=== PATIENT | female | born 2000 | race Caucasian/White ===

== ENCOUNTER 2024-12-30 11:10 | Outpatient (AMB) | payer SELFPAY ==
--- OUTSIDE RECORDS SUMMARY | 2024-12-30 12:52 | XMS_ITS | Encounter Summary ---
Author Organization [facility] Address [address] [place] [address] Phone Care Team Providers Care Power Plant Inspector Name Role Phone Chon Rodgers MD Primary Care Provider Pcp, Unknown Primary Care Provider Unavailabl e Encounter Details Date Type Department Care Team (Latest Contact Info) Description 03/09/2017 Transcribe Orders [facility] [address] [place] [address] Rodolfo Cerna MD 193 [facility] 2 [place] [address] [email or web address] Dysuria (Primary Dx) Social History Tobacco Use Types Packs/Day Years Used Date Smoking Tobacco: Never Assessed Comments Unknown Sex and Gender Information Value Date Recorded Sex Assigned at Female 05/22/2021 8:08 PM EST Legal Sex Female 8:47 PM EDT Gender Identity Female 05/22/2021 8:08 PM EST Sexual Orientation Straight 05/22/2021 8: 08 PM EST documented as of this encounter Plan of Treatment Not on file documented as of this encounter Procedures Procedure Name Priority Date/Time Associated Diagnosis Comments URINE CULTURE Routine 03/08/2017 3:34 PM EDT Dysuria documented in this encounter Results * (ABNORMAL) Urine culture (03/08/2017 3:34 PM EDT) Specimen Source/ Description URINE URINE [facility] Special Requests None [facility] GRAM STAIN Few GRAM NEGATIVE RODS [facility] Culture/Test 10,000 to 100,000 colony forming units per ml ESCHERICHIA COLI(A) [facility] Report Status 03/11/2017 FINAL [facility] ORGANISM ESCHERICHIA COLI [facility] Urine (Urine) 03/08/2017 3:3 4 PM EDT 03/09/2017 7:39 PM EDT Narrative Organism Antibiotic Method Susceptibility Escherichia coli Ampicillin [facility] METHOD <=2: Susceptible Escherichia coli Amoxicillin-clavulanate [facility] METHO D <=2: Susceptible Escherichia coli Ampicillin-sulbactam [facility] METHOD <=2: Susceptible Escherichia coli Cefazolin [facility] METHOD <=4: Susceptible Escherichia coli Cefepime [facility] METHOD <=1: Susceptible Escherichia coli Ceftazidime [facility] METHOD <=1: Susceptible Escherichia coli Ceftriaxone [facility] METHOD <=1: Susceptible Escherichia coli Ciprofloxacin [facility] METHOD <=0.25: Susceptible Escherichia coli Extended Spectrum B-lactamase [facility] METHOD Negative Escherichia coli Gentamicin [facility] METHOD <=1: Susceptible Escherichia coli Levofloxacin [facility] METHOD <=0.12: Susceptible Escherichia coli Nitrofurantoin [facility] METHOD <=16: Susceptible Escherichia coli Piperacillin-tazobactam [facility] METHO D <=4: Susceptible Escherichia coli Trimethoprim/sulfame thoxa zole [facility] METHOD <=20: Susceptible Comment:10,000 to 100,000 co lony forming units per ml ESCHERICHIA COLI Rodolfo Cerna MD MICROBIOLOGY - GENERAL ORDERABL ES Edited Result - Final [facility] [address] [place] [address] documented in this encounter Visit Diagnoses Diagnosis Dysuria- Primary documented in this encounter Additional Health Concerns Infection Onset Date Last Indicated Resolved Time CoV-Risk 07/18/2022 07/18/2022 07/29/2022 1:23 AM EDT CoV-Risk 08/01/2023 08/01/2023 08/12/2023 1:22 AM EDT documented as of this encounter Care Teams Power Plant Inspector Relationship Specialty Start Date End Date Chon Rodgers MD 193 [facility], [address] [place] [address] PCP - General Pediatrics 08/21/17 01/04/21 Pcp, Unknown PCP - General 01/05/21 documented as of this encounter Additional Source Comments The information contained in this document represents components of the legal health record. It is not the complete legal health record.[facility]
--- OUTSIDE RECORDS SUMMARY | 2024-12-30 12:52 | XMS_ITS | Encounter Summary ---
Author Organization [facility] Address [address] [place] [address] Phone Care Team Providers Care Gettering Filament Machine Operator Name Role Phone Smiley Baeza MD Primary Care Provider [phone] Encounter Details Date Type Department Care Team (Late st Contact Info) Description 12/18/2016 Conversion Encounter [facility] - [address], [address] [place] [address] Smiley Baeza MD [address] [place] [address] Social History Tobacco Use Types Packs/Day Years Used Date Smoking Tobacco: Never Assessed Comments Unknown Sex and Gender Information Value Date Recorded Sex Assigned at Not on file Legal Sex Female 6:31 PM EDT Gender Identity Not on file Sexual Orientation Not on file documented as of this encounter Plan of Treatment Not on file documented as of this encounter Visit Diagnoses Not on filedocumented in this encounter Care Teams Gettering Filament Machine Operator Relationship Specialty Start Date End Date Smiley Baeza MD 193 [place] [address] PCP - General Pediatrics 03/19/17 12/27/22 documented as of this encounter
== END 2024-12-30 14:10 | disposition home or self-care (01) ==
PROVIDERS: Visit Provider Registered Nurse Emergency
DX: J30.89 Other allergic rhinitis (principal)
CPT/HCPCS: 95117; 95165

== ENCOUNTER 2025-01-12 10:06 | Outpatient (AMB) | payer OTHER, SELFPAY ==
--- OUTSIDE RECORDS SUMMARY | 2025-01-12 11:36 | XMS_ITS | Clinical Summary ---
Author Organization [facility] Address [address] [place] [address] Phone Care Team Providers Care Media Planner Name Role Phone Pcp, Unknown Primary Care Provider Unavailabl e Allergies No known active allergies Medications levonorgestrel- ethinyl estradiol (AVIANE,ALESSE, LESSINA) 0.1-0.02 mg per tablet Aviane 0.1 mg-20 mcg tablet Active albuterol 90 mcg/actuation inhaler Inhale 108 mcg into the lungs. Active methylPREDNISol one (MEDROL DOSEPACK) 4 mg tablet follow package directions 21 tablet 4 Active Active Problems Problem Noted Date Diagnosed Date Dysmenorrhea 10/10/2016 Overview (08/01/2023): Last Assessment & Plan: On aviane, still with some cramping/lower back pain, but this is manageable and she's not interested in changing pills or methods at this time. Seasonal allergic rhinitis 06/24/2016 Overview (08/01/2023): Last Assessment & Plan: Continues to use claritin D and flonase, but now getting allergy shots through Dr. Archibald. Immunizations Immunization Administration Dates Next Due COVID-19 (Pre-03/03) Moderna Vaccine, mRNA, PF 10/10/2020,09/11/2020 DTaP 05/17/2003, 0,1999,05/28,1999 HPV,quadrivalent 04/21/2014,11/09/2013, 4 Hepatitis B 1999,1999,1999 Hib,PRP-T 01/29/2000, 0,1999,03/29 IPV 05/17/2003, 0,1999,03/29 Influenza, Unspecified Formulation 04/21/2014,,05/20/2012 MMR 05/17/2003,04/28/2000 Meningococcal MCV4P 10/10/2016,05/10/2011 Pneumococcal conjugate, PCV 7 04/28/2000, 000 Tdap 01/30/2010 Varicella 05/10/2011,01/29/2000 Social History Tobacco Use Types Packs/Day Years Used Date Smoking Tobacco: Light Smoker Smokeless Tobacco: Never Comments:Vaping / e-cig Alcohol Use Standard Drinks/Week Comments Never 0 (1 standard drink = 0.6 oz pur e alcohol) Education Answer Date Recorded Are you interested in more education? Not on penny e 09/06/2022 Are you concerned about learning? Not on file 09/06/2022 No 09/06/2022 No 09/06/2022 Digital Access Answer Date Recorded No 10/04/2022 No 10/04/2022 Reliable internet access at home? Not on file 10/04/2022 Device with a working camera? Not on file Comments No Sex and Gender Information Value Date Recorded Sex Assigned at Female 05/22/2021 8:08 PM EST Legal Sex Female 8:47 PM EDT Gender Identity Female 05/22/2021 8:08 PM EST Sexual Orientation Straight 05/22/2021 8: 08 PM EST Last Filed Vital Signs Vital Sign Reading Time Taken Comments Blood Pressure 105/71 08/01/2023 5:47 PM EDT Pulse 84 08/01/2023 5:47 PM EDT Temperature 36.7 C (98 F) 08/01/2023 5:47 PM EDT Respiratory Rate 12 08/01/2023 5:47 PM EDT Oxygen Saturation 99% 08/01/2023 5:47 PM EDT Inhaled Oxygen Concentration - - Weight 56.7 kg (125 lb) 12/30/2022 10:26 AM EDT Height 154.9 cm (5' 1 ) 07/18/2022 4:10 PM EST Body Mass Index 23.62 07/18/2022 4:10 PM EST Plan of Treatment Health Maintenance Due Date Last Done Comments DEPRESSION SCREENING 2011 SMOKING Hx and SMOKELESS TOBACCO SCREENING 01/28/2012 HEPATITIS C SCREENING 2017 HIV ONE-TIME SCREENING (18-65 YEARS) 2017 PNEUMOCOCCAL VACCINES (0-49 years) (1 of 2 - PCV) 2018 04/28/2000, 01/29/2000 PAP SMEAR 01/28/2020 Adult Td,Tdap Booster 01/31/2020 01/30/2010 INFLUENZA VACCINE (#1) 2024 4, 06/30/2013, 05/20/2012 COVID-19 VACCINE ( season) 2025 10/10/2020, 09/11/2020 HIB VACCINES Completed 01/29/2000, 07/11, 1999, Additional history exists HPV VACCINES Completed 04/21/2014, 05/2013, 06/30/2013 MENINGOCOCCAL VACCINES (ACWY) Completed 10/10/2016, 05/10/2011 HEPATITIS A VACCINES Aged Out No long er eligible based on patient's age to complete this topic MENINGOCOCCAL VACCINES (B) Aged Out N o longer eligible based on patient's age to complete this topic Medical Devices Not on file Insurance [facility] OUT [facility] PPO BLUE CROSS OUT OF STATE PPO BLUE CROSS OUT OF [facility] PPO BLUE CROSS OUT OF STATE PPO BLUE CROSS OUT OF STATE PPO [facility] OUT OF STATE PPO [facility] OUT [facility] PPO [facility] OUT [facility] PPO [facility] PPO Care Teams Media Planner Relationship Specialty Start Date End Date Pcp, Unknown PCP - General 01/05/21 Additional Source Comments The information contained in this document represents components of the legal health record. It is not the complete legal health record.[facility]
--- OUTSIDE RECORDS SUMMARY | 2025-01-12 11:36 | XMS_ITS | Encounter Summary ---
Author Organization [facility] Address [address] [place] [address] Phone Care Team Providers Care Gluing Pressman Name Role Phone Smiley Baeza MD Primary Care Provider [phone] Encounter Details Date Type Department Care Team (Late st Contact Info) Description 12/18/2016 Conversion Encounter [facility]s - [address], [address] [place] [address] Smiley Baeza MD [address] [place] [address] Social History Tobacco Use Types Packs/Day Years [...] on filedocumented in this encounter Care Teams Gluing Pressman Relationship Specialty Start Date End Date Smiley Baeza MD 193 [place] [address] PCP - General Pediatrics 03/19/17 12/27/22 documented as of this encounter
--- OUTSIDE RECORDS SUMMARY | 2025-01-12 11:36 | XMS_ITS | Encounter Summary ---
Author Organization [facility] Address [address] [place] [address] Phone Care Team Providers Care Production Support Manager Name Role Phone Smiley Baeza MD Primary Care Provider [phone] Reason for Visit * Reason Comments Med Refill Encounter Details Date Type Department Care Team (Late st Contact Info) Description 01/11/2022 Refill [facility] - [place] [address] [place] [address] Smiley Baeza MD 193 [place] [address] Dysmenorrhea Social History Tobacco Use Types Packs/Day Years Used Date Smoking Tobacco: Never Smokeless Tobacco: Never Comments:no vaping Alcohol Use Standard Drinks/Week Comments Not Currently 0 (1 standard drink = 0.6 oz pur e alcohol) Hunger/Food Answer Date Recorded In the last 12 months, did y ou or your family ever eat less than you felt you should because there wasn't enough money for food? No 07/09/2018 Stable Housing Answer Date Recorded Are you worried that in the next 2 months you may not have stable housing? No 07/09/2018 Transportation Concerns Answer Date Rec orded In the last 12 months, have you or your family ever had to go without healthcare because you didn't have a way to get there? No 07/09/2018 Hazards in Home Answer Date Recorded Think about the place you li ve. Do you have problems with any of the following? Pests (mice or roaches), mold, no/not working smoke detectors, water leaks, no window guards. No 2018 Financing Utilities Answer Date Recorde d In the last 12 months, has t he electric, gas, oil, or water company threatened to shut off your services in your home? No 07/09/2018 Safety at Home Answer Date Recorded Are you or your family worried about feeling saf e in your home? No 07/09/2018 Outside Support Answer Date Recorded Do you feel that you need mo re support from other people or programs to help you care for yourself or your family? No 07/09/2018 Understanding Health Concerns Answer Da te Recorded Do you need help understandi ng your or your child's healthcare needs (diagnosis, medications, plan, etc.)? No 07/09/2018 Financing Health Concerns Answer Date R ecorded In the last 12 months, was t here a time when your child needed to see a doctor or get medications or supplies but could not because of cost? No 07/09/2018 Missing School or Work Answer Date Shamar rded Did you or your child miss s chool or work because of a health problem that could have been avoided? No 07/09/2018 Comments No Sex and Gender Information Value Date Recorded Sex Assigned at Not on file Legal Sex Female 6:31 PM EDT Gender Identity Not on file Sexual Orientation Not on file documented as of this encounter Plan of Treatment Not on file documented as of this encounter Visit Diagnoses Diagnosis Dysmenorrhea documented in this encounter Care Teams Production Support Manager Relationship Specialty Start Date End Date Smiley Baeza MD [address] [place] [address] PCP - General Pediatrics 03/19/17 12/27/22 documented as of this encounter
--- OUTSIDE RECORDS SUMMARY | 2025-01-12 11:36 | XMS_ITS | Encounter Summary ---
Author Organization [facility] Address [address] [place] [address] Phone Care Team Providers Care Gold Assayer Name Role Phone Smiley Baeza MD Primary Care Provider [phone] Reason for Visit * Reason Comments Med Refill Encounter Details Date Type Department Care Team (Late st Contact Info) Description 07/22/2021 Refill [facility] - [place] [address] [place] [address] Cohn Rodgers MD 193 [place] [address] Dysmenorrhea Social History Tobacco Use Types Packs/Day [...] on file documented as of this encounter Miscellaneous Notes * Telephone Encounter - Palma Barrera - 07/23/2021 11:25 AM EDT Called pt and she was unable to schedule at this time but stated that she would cb to schedule * Telephone Encounter - Smiley Baeza MD - 07/22/2021 8:37 PM EDT Please have patient schedule a well visit. Thank you. documented in this encounter Plan of Treatment Not on file documented as of this encounter Visit Diagnoses Diagnosis Dysmenorrhea documented in this encounter Care Teams Gold Assayer Relationship Specialty Start Date End Date Smiley Baeza MD [address] [place] [address] PCP - General Pediatrics 03/19/17 12/27/22 documented as of this encounter
--- OUTSIDE RECORDS SUMMARY | 2025-01-12 11:36 | XMS_ITS | Encounter Summary ---
Author Organization [facility] Address [address] [place] [address] Phone Care Team Providers Care It Network Architect Name Role Phone Chon Rodgers MD Primary Care Provider Pcp, Unknown Primary Care Provider Unavailabl e Encounter Details Date Type Department Care Team (Latest Contact Info) Description 03/09/2017 Transcribe Orders [facility] [address] [place] [address] Rodolfo Cerna MD 193 [facility] 2 [place] [address] [email or web address] Dysuria (Primary Dx) Social History Tobacco Use [...] PM EDT) Specimen Source/ Description URINE URINE [facility] Special Requests None [facility] GRAM STAIN Few GRAM NEGATIVE RODS [facility] Culture/Test 10,000 to 100,000 colony forming units per ml ESCHERICHIA COLI(A) [facility] Report Status 03/11/2017 FINAL [facility] ORGANISM ESCHERICHIA COLI [facility] Urine (Urine) 03/08/2017 3:3 4 PM EDT [...] GENERAL ORDERABL ES Edited Result - Final [facility] [address] [place] [address] documented in this encounter Visit Diagnoses Diagnosis Dysuria- Primary documented in this encounter Additional Health Concerns Infection Onset Date Last Indicated Resolved Time CoV-Risk 07/18/2022 07/18/2022 07/29/2022 1:23 AM EDT CoV-Risk 08/01/2023 08/01/2023 08/12/2023 1:22 AM EDT documented as of this encounter Care Teams It Network Architect Relationship Specialty Start Date End Date Chon Rodgers MD 193 [facility], [address] [place] [address] PCP - General Pediatrics 08/21/17 01/04/21 Pcp, Unknown PCP - General 01/05/21 documented as of this encounter Additional Source Comments The information contained in this document represents components of the legal health record. It is not the complete legal health record.[facility]
--- OUTSIDE RECORDS SUMMARY | 2025-01-12 11:36 | XMS_ITS | Clinical Summary ---
Author Organization [facility] Address [address] [place] [phone] Phone Care Team Providers Care Associate Justice Name Role Phone Unavailable Primary Care Provider Unavailabl e Allergies No known active allergies Medications albuterol HFA 108 (90 Base) MCG/ACT inhaler Inhale 108 mcg. Active fluticasone 50 MCG/ACT nasal spray Administer 1 spray into each nostril as needed for rhinitis. Active levonorgestrel- ethinyl estradiol (Aviane) 0.1-20 MG-MCG per tabletIndicatio ns:Dysmenorrhea Take 1 tablet by mouth once daily 84 tablet 3 2 Active Active Problems Problem Noted Date Diagnosed Date Otalgia of both ears 06/05/2019 Overview (06/05/2019): Offered tympanostomy tubes. Assessment & Plan (08/03/2021 9:51 AM EDT): Had PE tube on right which didn't work; continues with pain, hoping allergy shots will help. Dysmenorrhea 10/10/2016 Assessment & Plan (08/03/2021 12:03 PM EDT): On aviane, still with some cramping/lower back pain, but this is manageable and she's not interested in changing pills or methods at this time. Needle phobia 10/10/2016 Seasonal allergic rhinitis 06/24/2016 Assessment & Plan (08/03/2021 9:50 AM EDT): Continues to use claritin D and flonase, but now getting allergy shots through Dr. Archibald. Resolved Problems Problem Noted Date Diagnosed Date Resolved Date Acute cystitis without hematuria 03/08/2017 07/09/2018 Assessment & Plan (03/08/2017 3:34 PM EDT): 5-8 WBC/hpf on micro. Likely early UTI. Will treat and recheck prn. Sore throat 01/23/2017 07/09/2018 Right elbow tendonitis 10/10/201607/09 Sleep disturbance 10/10/2016 07/09/2018 Mild asthma 07/23/2016 08/03/2021 Assessment & Plan (08/03/2021 9:51 AM EDT): Has not used albuterol in many years. Immunizations Immunization Administration Dates Next Due COVID-19 Moderna, monovalent , 12+ years 10/10/2020,09/11/2020 DTaP 05/17/2003, 0,1999,05/28,1999 HPV, Quadrivalent 04/21/2014,11/09/2013,06/30/19 14 Hep B, ped/adol 1999,1999,1999 Hib (PRP-T) 01/29/2000, 0,1999,03/29 IPV 05/17/2003, 0,1999,03/29 Influenza 04/21/2014,06/30/2013,05/20/2012 MMR 05/17/2003,04/28/2000 Meningococcal Conj (Menactra) MCV4P 10/10/2016,1 Pneumococcal Conjugate 04/28/2000,01/29/2000 Tdap 01/30/2010 Varicella 05/10/2011,01/29/2000 Family History Relation Name Status Comments Maternal Grandmother Mat GMo ther: Ulcers, diverticulitis, depression Mother Mother: depress ion, post depression, tendonitis right wrist Other 1 depression, pos t depression, tendonitis right wrist Other 2 emphysema, zayda rgies Other 3 Sister - Rec. O M, required mastoidectomy in infancy for cholesteotoma, hearing loss bilaterally, food allergies, lactose intolerance, asthma; brother - environmental allergies Other 4 Ulcers, diverti culitis, depression Other 5 Breast Cancer Paternal Grandfather Pat GFa ther: emphysema, allergies Paternal Grandmother Pat GMo ther: Breast Cancer Social History Tobacco Use Types Packs/Day Years [...] on file Sexual Orientation Not on file Last Filed Vital Signs Vital Sign Reading Time Taken Comments Blood Pressure 109/69 08/03/2021 9:35 AM EDT Pulse 67 08/03/2021 9:35 AM EDT Temperature 36.6 C (97.8 F) 08/21/2017 5:42 PM EDT Respiratory Rate - - Oxygen Saturation 98% 06/24/2016 12:00 AM EST Inhaled Oxygen Concentration - - Weight 49.5 kg (109 lb 3.2 oz) 08/03/2021 9:35 A M EDT Height 157.5 cm (5' 2 ) 07/09/2018 1:44 PM EST Body Mass Index 19.97 07/09/2018 1:44 PM EST Plan of Treatment Health Maintenance Due Date Last Done Comments DTaP,Tdap,and Td Vaccines (7 - Td or Tdap) 01/31/2020 01/30/2010, 05/17/2003, 04/28/2000, Additional history exists Influenza Vaccines (#1) 2024 04/21/20 14, 06/30/2013, 05/20/2012 COVID-19 Vaccine ( season) 2025 10/10/2020, 09/11/2020 Hepatitis B Vaccines Completed 1999, 1999, 1999 HIB Vaccines Completed 01/29/2000, 07/11, 1999, Additional history exists Pneumococcal Vaccine Completed 04/28/2000, 01/29/20 IPV Vaccines Completed 05/17/2003, 01/10, 1999, Additional history exists MMR Vaccines Completed 05/17/2003, 04/28/2000 Varicella Vaccines Completed 05/10/2011, 01/29/2000 HPV Vaccines Completed 04/21/2014, 0705/2013, 06/30/2013 Meningococcal Vaccine Completed 10/10/2016, 011 Hepatitis A Vaccines Aged Out No long er eligible based on patient's age to complete this topic Men B Vaccine Aged Out No longer elig ible based on patient's age to complete this topic Procedures * Due to [place] Chat[place] law, this organization might not be sharing sensitive test results. Procedure Name Priority Date/Time Associated Diagnosis Comments CHLAMYDIA AND GONORRHEA, AMPLIFIED Routine 07/09/2018 6:49 PM EST Well adult exam from Last 3 Months or Most Recently Relevant to Health Maintenance Results * Due to [place] Chat[place] law, this organization might not be sharing sensitive test results. * Chlamydia and Gonorrhoea, Amplified (07/09/2018 6:49 PM EST) Chlamydia trachomatis RNA, TMA Not Detected Not Detected 07/10/2018 1:20 PM EST [facility] Neisseria gonorrhoeae, YVON Not Detected Not Detected 07/10/2018 1:20 PM EST [facility] Specimen Type URINE 07/10/2018 1:20 PM EST [facility] 07/09/2018 6:49 PM EST 07/09/2018 6:58 PM EST us Smiley Baeza MD LAB MICROBIOLOGY - GENERAL ORD ERABLES Final Result [facility] from Last 3 Months or Most Recently Relevant to Health Maintenance
== END 2025-01-12 10:13 | disposition home or self-care (01) ==
LOC: HO.HMGAL 10:06
PROVIDERS: Visit Provider Registered Nurse Emergency
DX: J30.89 Other allergic rhinitis (principal)
CPT/HCPCS: 95117; 95165

== ENCOUNTER 2025-02-14 11:38 | Outpatient (AMB) | payer OTHER, SELFPAY ==
--- OUTSIDE RECORDS SUMMARY | 2025-02-14 14:13 | XMS_ITS | Clinical Summary ---
Author Organization [facility] Address [address] [place] [address] Phone Care Team Providers Care Job Coach Name Role Phone Pcp, Unknown Primary Care [...] topic Medical Devices Not on file Insurance [facility] OUT [facility] PPO BLUE CROSS OUT OF STATE PPO BLUE CROSS OUT OF [facility] PPO BLUE CROSS OUT OF STATE PPO BLUE CROSS OUT OF STATE PPO [facility] OUT OF STATE PPO [facility] OUT [facility] PPO [facility] OUT [facility] PPO [facility] PPO Care Teams Job Coach Relationship Specialty Start Date End Date Pcp, Unknown PCP - General 01/05/21 Additional Source Comments The information contained in this document represents components of the legal health record. It is not the complete legal health record.[facility]
--- OUTSIDE RECORDS SUMMARY | 2025-02-14 14:13 | XMS_ITS | Encounter Summary ---
Author Organization [facility] Address [address] [place] [address] Phone Care Team Providers Care Filer Metal Patterns Name Role Phone Smiley Baeza MD Primary Care Provider [phone] Encounter Details Date Type Department Care Team (Late st Contact Info) Description 12/18/2016 Conversion Encounter [facility] Pediatrics - [address], [address] [place] [address] Smiley Baeza MD [address] [place] [address] Social History Tobacco Use Types Packs/Day Years [...] on filedocumented in this encounter Care Teams Filer Metal Patterns Relationship Specialty Start Date End Date Smiley Baeza MD [address] [place] [address] PCP - General Pediatrics 03/19/17 12/27/22 documented as of this encounter
--- OUTSIDE RECORDS SUMMARY | 2025-02-14 14:13 | XMS_ITS | Encounter Summary ---
Author Organization [facility] Address [address] [place] [address] Phone Care Team Providers Care Environmental Health Physician Name Role Phone Smiley Baeza MD Primary Care Provider [phone] Reason for Visit * Reason Comments Med Refill Encounter Details Date Type Department Care Team (Late st Contact Info) Description 01/11/2022 Refill [facility] Pediatrics - [place] [address] [place] [address] Smiley Baeza MD [address] [place] [address] Dysmenorrhea Social History Tobacco Use Types Packs/Day [...] Dysmenorrhea documented in this encounter Care Teams Environmental Health Physician Relationship Specialty Start Date End Date Smiley Baeza MD [address] [place] [address] PCP - General Pediatrics 03/19/17 12/27/22 documented as of this encounter
--- OUTSIDE RECORDS SUMMARY | 2025-02-14 14:13 | XMS_ITS | Encounter Summary ---
Author Organization [facility] Address [address] [place] [address] Phone Care Team Providers Care Director Cloud Transformation Name Role Phone Chon Rodgers MD Primary Care Provider Pcp, Unknown Primary Care Provider Unavailabl e Encounter Details Date Type Department Care Team (Latest Contact Info) Description 03/09/2017 Transcribe Orders [facility] Laboratory [address] [place] [address] Rodolfo Cerna MD 193 [facility] 2 [place] [address] [email or web address] Dysuria (Primary Dx) Social History Tobacco [...] PM EDT) Specimen Source/ Description URINE URINE [facility] Special Requests None [facility] GRAM STAIN Few GRAM NEGATIVE RODS [facility] Culture/Test 10,000 to 100,000 colony forming units per ml ESCHERICHIA COLI(A) [facility] Report Status 03/11/2017 FINAL [facility] ORGANISM ESCHERICHIA COLI [facility] Urine (Urine) 03/08/2017 3:3 4 PM EDT [...] GENERAL ORDERABL ES Edited Result - Final [facility] [address] [place] [address] documented in this encounter Visit Diagnoses Diagnosis Dysuria- Primary documented in this encounter Additional Health Concerns Infection Onset Date Last Indicated Resolved Time CoV-Risk 07/18/2022 07/18/2022 07/29/2022 1:23 AM EDT CoV-Risk 08/01/2023 08/01/2023 08/12/2023 1:22 AM EDT documented as of this encounter Care Teams Director Cloud Transformation Relationship Specialty Start Date End Date Chon Rodgers MD 193 [facility], [address] [place] [address] PCP - General Pediatrics 08/21/17 01/04/21 Pcp, Unknown PCP - General 01/05/21 documented as of this encounter Additional Source Comments The information contained in this document represents components of the legal health record. It is not the complete legal health record.[facility]
--- OUTSIDE RECORDS SUMMARY | 2025-02-14 14:13 | XMS_ITS | Clinical Summary ---
Author Organization [facility] Address [address] [place] [address] Phone Care Team Providers Care Airflight Attendants Supervisor Name Role Phone Unavailable Primary Care Provider [...] complete this topic Procedures * Due to [place] [employer] law, this organization might not be sharing sensitive test results. Procedure Name Priority Date/Time Associated Diagnosis Comments CHLAMYDIA AND GONORRHEA, AMPLIFIED Routine 07/09/2018 6:49 PM EST Well adult exam from Last 3 Months or Most Recently Relevant to Health Maintenance Results * Due to [place] [employer] law, this organization might not be sharing sensitive test results. * Chlamydia and Gonorrhoea, Amplified (07/09/2018 6:49 PM EST) Chlamydia trachomatis RNA, TMA Not Detected Not Detected 07/10/2018 1:20 PM EST [facility] Neisseria gonorrhoeae, YVON Not Detected Not Detected 07/10/2018 1:20 PM EST [facility] Specimen Type URINE 07/10/2018 1:20 PM EST [facility] 07/09/2018 6:49 PM EST 07/09/2018 6:58 PM EST us Smiley Baeza MD LAB MICROBIOLOGY - GENERAL ORD ERABLES Final Result [facility] from Last 3 Months or Most Recently Relevant to Health Maintenance
--- OUTSIDE RECORDS SUMMARY | 2025-02-14 14:13 | XMS_ITS | Encounter Summary ---
Author Organization [facility] Address [address] [place] [address] Phone Care Team Providers Care Milk Vendor Name Role Phone Smiley Baeza MD Primary Care Provider [phone] Reason for Visit * Reason Comments Med Refill Encounter Details Date Type Department Care Team (Late st Contact Info) Description 07/22/2021 Refill [facility] Pediatrics - [place] [address] [place] [address] Chon Rodgers MD [address] [place] [address] Dysmenorrhea Social History Tobacco Use Types Packs/Day [...] Dysmenorrhea documented in this encounter Care Teams Milk Vendor Relationship Specialty Start Date End Date Smiley Baeza MD [address] [place] [address] PCP - General Pediatrics 03/19/17 12/27/22 documented as of this encounter
== END 2025-02-14 11:41 | disposition home or self-care (01) ==
LOC: HO.HMGAL 11:38
PROVIDERS: Visit Provider Registered Nurse Emergency
DX: J30.89 Other allergic rhinitis (principal)
CPT/HCPCS: 95117; 95165

== ENCOUNTER 2025-02-28 15:22 | Outpatient (AMB) | payer OTHER, SELFPAY ==
--- OUTSIDE RECORDS SUMMARY | 2025-02-28 19:34 | XMS_ITS | Encounter Summary ---
Author Organization [facility] Address [address] [place] [address] Phone Care Team Providers Care Buzzsaw Operator Helper Name Role Phone Smiley Baeza MD Primary Care Provider Encounter Details Date Type Department Care Team (Late st Contact Info) Description 12/18/2016 Conversion Encounter [facility] Pediatrics - [address], [address] [place] [address] Smiley Baeza MD [address] [place] [address] Social History Tobacco Use Types Packs/Day Years [...] on filedocumented in this encounter Care Teams Buzzsaw Operator Helper Relationship Specialty Start Date End Date Smiley Baeza MD [address] [place] [address] PCP - General Pediatrics 03/19/17 12/27/22 documented as of this encounter
--- OUTSIDE RECORDS SUMMARY | 2025-02-28 19:34 | XMS_ITS | Encounter Summary ---
Author Organization [facility] Address [address] [place] [address] Phone Care Team Providers Care Sewer Inspector Name Role Phone Chon Rodgers MD Primary Care Provider [phone] Pcp, Unknown Primary Care Provider Unavailabl e Encounter Details Date Type Department Care Team (Latest Contact Info) Description 03/09/2017 Transcribe Orders [facility] Laboratory [address] [place] [address] Rodolfo Cerna MD 193 [facility] 2 [place] [address] [email or web address] Dysuria (Primary Dx) Social History Tobacco Use [...] PM EDT) Specimen Source/ Description URINE URINE [facility] Special Requests None [facility] GRAM STAIN Few GRAM NEGATIVE RODS [facility] Culture/Test 10,000 to 100,000 colony forming units per ml ESCHERICHIA COLI(A) [facility] Report Status 03/11/2017 FINAL [facility] ORGANISM ESCHERICHIA COLI [facility] Urine (Urine) 03/08/2017 3:3 4 PM [...] GENERAL ORDERABL ES Edited Result - Final [facility] [address] [place] [address] documented in this encounter Visit Diagnoses Diagnosis Dysuria- Primary documented in this encounter Additional Health Concerns Infection Onset Date Last Indicated Resolved Time CoV-Risk 07/18/2022 07/18/2022 07/29/2022 1:23 AM EDT CoV-Risk 08/01/2023 08/01/2023 08/12/2023 1:22 AM EDT documented as of this encounter Care Teams Sewer Inspector Relationship Specialty Start Date End Date Chon Rodgers MD 193 [facility], [address] [place] [address] PCP - General Pediatrics 08/21/17 01/04/21 Pcp, Unknown PCP - General 01/05/21 documented as of this encounter Additional Source Comments The information contained in this document represents components of the legal health record. It is not the complete legal health record.[facility]
--- OUTSIDE RECORDS SUMMARY | 2025-02-28 19:34 | XMS_ITS | Encounter Summary ---
Author Organization [facility] Address [address] [place] [address] Phone Care Team Providers Care Assistant Front Office Manager Name Role Phone Smiley Baeza MD Primary Care Provider [phone] Reason for Visit * Reason Comments Med Refill Encounter Details Date Type Department Care Team (Late st Contact Info) Description 01/11/2022 Refill [facility] Pediatrics - [place] [address] [place] [address] Smiley Baeza MD [address] [place] [address] Dysmenorrhea Social History Tobacco Use Types Packs/Day [...] Dysmenorrhea documented in this encounter Care Teams Assistant Front Office Manager Relationship Specialty Start Date End Date Smiley Baeza MD [address] [place] [address] PCP - General Pediatrics 03/19/17 12/27/22 documented as of this encounter
--- OUTSIDE RECORDS SUMMARY | 2025-02-28 19:35 | XMS_ITS | Clinical Summary ---
Author Organization [facility] Address [address] [place] [address] Phone Care Team Providers Care Tipple Oiler Name Role Phone Pcp, Unknown Primary Care [...] topic Medical Devices Not on file Insurance [facility] OUT [facility] PPO BLUE CROSS OUT OF STATE PPO Member Subscriber Plan / Payer (Ef fective 2019-Present) Name:Bridgett Juarez Relation to Subscriber:Child Name:ROM JUAREZ Date of :1958 (Home) Address: [address] [place] [address] Payer ID:[id number] (NAIC) Type:PPO Address: [address] [place] [address] BLUE CROSS OUT OF [facility] PPO BLUE CROSS OUT OF STATE PPO BLUE CROSS OUT OF STATE PPO [facility] OUT OF STATE PPO [facility] OUT [facility] PPO Member Subscriber Plan / Payer (Ef fective 2019-Present) Name:Meg Juarezca Relation to Subscriber:Child Name:ROM JUAREZ Date of :1958 (Home) Address: [address] [place] [address] Payer ID:[id number] (NAIC) Type:PPO Address: [address] [place] [address] [facility] OUT [facility] PPO [facility] PPO Care Teams Tipple Oiler Relationship Specialty Start Date End Date Pcp, Unknown PCP - General 01/05/21 Additional Source Comments The information contained in this document represents components of the legal health record. It is not the complete legal health record.[facility]
--- OUTSIDE RECORDS SUMMARY | 2025-02-28 19:35 | XMS_ITS | Clinical Summary ---
Author Organization [facility] Address [address] [place] [address] Phone Care Team Providers Care Business Intelligence Architect Name Role Phone Unavailable Primary Care Provider [...] complete this topic Procedures * Due to [place] [employer] law, this organization might not be sharing sensitive test results. Procedure Name Priority Date/Time Associated Diagnosis Comments CHLAMYDIA AND GONORRHEA, AMPLIFIED Routine 07/09/2018 6:49 PM EST Well adult exam from Last 3 Months or Most Recently Relevant to Health Maintenance Results * Due to [place] [employer] law, this organization might not be sharing sensitive test results. * Chlamydia and Gonorrhoea, Amplified (07/09/2018 6:49 PM EST) Chlamydia trachomatis RNA, TMA Not Detected Not Detected 07/10/2018 1:20 PM EST [facility] Neisseria gonorrhoeae, YVON Not Detected Not Detected 07/10/2018 1:20 PM EST [facility] Specimen Type URINE 07/10/2018 1:20 PM EST [facility] 07/09/2018 6:49 PM EST 07/09/2018 6:58 PM EST us Smiley Baeza MD LAB MICROBIOLOGY - GENERAL ORD ERABLES Final Result [facility] from Last 3 Months or Most Recently Relevant to Health Maintenance
--- OUTSIDE RECORDS SUMMARY | 2025-02-28 19:35 | XMS_ITS | Encounter Summary ---
Author Organization [facility] Address [address] [place] [address] Phone Care Team Providers Care Academic Support Specialist Name Role Phone Smiley Baeza MD Primary Care Provider [phone] Reason for Visit * Reason Comments Med Refill Encounter Details Date Type Department Care Team (Late st Contact Info) Description 07/22/2021 Refill [facility] Pediatrics - [place] [address] [place] [address] Chon Rodgers MD [address] [place] [address] Dysmenorrhea Social History Tobacco Use Types Packs/Day [...] Dysmenorrhea documented in this encounter Care Teams Academic Support Specialist Relationship Specialty Start Date End Date Smiley Baeza MD [address] [place] [address] PCP - General Pediatrics 03/19/17 12/27/22 documented as of this encounter
== END 2025-02-28 15:23 | disposition home or self-care (01) ==
LOC: HO.HMGAL 15:22
PROVIDERS: Visit Provider Registered Nurse Emergency
DX: J30.89 Other allergic rhinitis (principal)
CPT/HCPCS: 95117; 95165

== ENCOUNTER 2025-03-23 10:25 | Outpatient (AMB) | payer OTHER, SELFPAY ==
--- OUTSIDE RECORDS SUMMARY | 2025-03-23 12:25 | XMS_ITS | Encounter Summary ---
Author Organization [facility] Address [address] [place] [address] Phone Care Team Providers Care Odd Jobs Day Worker Name Role Phone Smiley Baeza MD Primary Care Provider [phone] Reason for Visit * Reason Comments Med Refill Encounter Details Date Type Department Care Team (Late st Contact Info) Description 01/11/2022 Refill [facility] Pediatrics - [place] [address] [place] [address] Smiley Baeza MD [address] [place] [address] Dysmenorrhea Social History Tobacco Use Types Packs/Day [...] Dysmenorrhea documented in this encounter Care Teams Odd Jobs Day Worker Relationship Specialty Start Date End Date Smiley Baeza MD [address] [place] [address] PCP - General Pediatrics 03/19/17 12/27/22 documented as of this encounter
--- OUTSIDE RECORDS SUMMARY | 2025-03-23 12:25 | XMS_ITS | Encounter Summary ---
Author Organization [facility] Address [address] [place] [address] Phone Care Team Providers Care Cannery Worker Name Role Phone Chon Rodgers MD Primary Care Provider Pcp, Unknown Primary Care Provider Unavailabl e Encounter Details Date Type Department Care Team (Latest Contact Info) Description 03/09/2017 Transcribe Orders [facility] Main [address] [place] [address] Rodolfo Cerna MD 193 [facility] 2 [place] [address] [email or web address] Dysuria (Primary Dx) Social History Tobacco Use [...] PM EDT) Specimen Source/ Description URINE URINE [facility] Special Requests None [facility] GRAM STAIN Few GRAM NEGATIVE RODS [facility] Culture/Test 10,000 to 100,000 colony forming units per ml ESCHERICHIA COLI(A) [facility] Report Status 03/11/2017 FINAL [facility] ORGANISM ESCHERICHIA COLI [facility] Urine (Urine) 03/08/2017 3:3 4 PM [...] per ml ESCHERICHIA COLI Rodolfo Cerna MD LAB MICROBIOLOGY CULTURE ORDERA MARCELL Edited Result - Final [facility] [address] [place] [address] documented in this encounter Visit Diagnoses Diagnosis Dysuria- Primary documented in this encounter Additional Health Concerns Infection Onset Date Last Indicated Resolved Time CoV-Risk 07/18/2022 07/18/2022 07/29/2022 1:23 AM EDT CoV-Risk 08/01/2023 08/01/2023 08/12/2023 1:22 AM EDT documented as of this encounter Care Teams Cannery Worker Relationship Specialty Start Date End Date Chon Rodgers MD 193 [facility], [address] [place] [address] PCP - General Pediatrics 08/21/17 01/04/21 Pcp, Unknown PCP - General 01/05/21 documented as of this encounter Additional Source Comments The information contained in this document represents components of the legal health record. It is not the complete legal health record.[facility]
--- OUTSIDE RECORDS SUMMARY | 2025-03-23 12:25 | XMS_ITS | Encounter Summary ---
Author Organization [facility] Address [address] [place] [address] Phone Care Team Providers Care Full Service Supervisor Name Role Phone Smiley Baeza MD Primary Care Provider [phone] Encounter Details Date Type Department Care Team (Late st Contact Info) Description 12/18/2016 Conversion Encounter [facility] Pediatrics - [address], [address] [place] [address] Smiley Baeza MD [address] [place] [address] Social History Tobacco Use Types Packs/Day Years [...] on filedocumented in this encounter Care Teams Full Service Supervisor Relationship Specialty Start Date End Date Smiley Baeza MD [address] [place] [address] PCP - General Pediatrics 03/19/17 12/27/22 documented as of this encounter
--- OUTSIDE RECORDS SUMMARY | 2025-03-23 12:25 | XMS_ITS | Clinical Summary ---
Author Organization [facility] Address [address] [place] [address] Phone Care Team Providers Care Run Boat Operator Name Role Phone Pcp, Unknown Primary Care [...] Completed 01/29/2000, 07/11, 1999, Additional history exists IPV VACCINES Completed 05/17/2003, 01/10, 1999, Additional history exists HPV VACCINES Completed 04/21/2014, 05/2013, 06/30/2013 MENINGOCOCCAL VACCINES (ACWY) Completed 10/10/2016, 05/10/2011 HEPATITIS A VACCINES Aged Out No long er eligible based on patient's age to complete this topic MENINGOCOCCAL VACCINES (B) Aged Out N o longer eligible based on patient's age to complete this topic Medical Devices Not on file Insurance [facility] OUT OF STATE PPO BLUE CROSS OUT OF STATE PPO BLUE CROSS OUT OF STATE PPO BLUE CROSS OUT OF STATE PPO OUT [facility] PPO [facility] PPO BLUE CROSS OUT OF STATE PPO BLUE CROSS OUT OF [facility] PPO BLUE CROSS OUT OF STATE PPO Care Teams Run Boat Operator Relationship Specialty Start Date End Date Pcp, Unknown PCP - General 01/05/21 Additional Source Comments The information contained in this document represents components of the legal health record. It is not the complete legal health record.[facility]
--- OUTSIDE RECORDS SUMMARY | 2025-03-23 12:25 | XMS_ITS | Clinical Summary ---
Author Organization [facility] Address [address] [place] [address] Phone Care Team Providers Care Boom Master Name Role Phone Unavailable Primary Care Provider [...] complete this topic Procedures * Due to [place] [employer] law, this organization might not be sharing sensitive test results. Procedure Name Priority Date/Time Associated Diagnosis Comments CHLAMYDIA AND GONORRHEA, AMPLIFIED Routine 07/09/2018 6:49 PM EST Well adult exam from Last 3 Months or Most Recently Relevant to Health Maintenance Results * Due to [place] [employer] law, this organization might not be sharing sensitive test results. * Chlamydia and Gonorrhoea, Amplified (07/09/2018 6:49 PM EST) Chlamydia trachomatis RNA, TMA Not Detected Not Detected 07/10/2018 1:20 PM EST [facility] Neisseria gonorrhoeae, YVON Not Detected Not Detected 07/10/2018 1:20 PM EST [facility] Specimen Type URINE 07/10/2018 1:20 PM EST [facility] 07/09/2018 6:49 PM EST 07/09/2018 6:58 PM EST us Smiley Baeza MD LAB MICROBIOLOGY - GENERAL ORD ERABLES Final Result [facility] from Last 3 Months or Most Recently Relevant to Health Maintenance
--- OUTSIDE RECORDS SUMMARY | 2025-03-23 12:25 | XMS_ITS | Encounter Summary ---
Author Organization [facility] Address [address] [place] [address] Phone Care Team Providers Care Hearing Screener Name Role Phone Smiley Baeza MD Primary Care Provider [phone] Reason for Visit * Reason Comments Med Refill Encounter Details Date Type Department Care Team (Late st Contact Info) Description 07/22/2021 Refill [facility] Pediatrics - [place] [address] [place] [address] Chon Rodgers MD [address] [place] [address] Dysmenorrhea Social History Tobacco Use Types Packs/Day [...] Dysmenorrhea documented in this encounter Care Teams Hearing Screener Relationship Specialty Start Date End Date Smiley Baeza MD [address] [place] [address] PCP - General Pediatrics 03/19/17 12/27/22 documented as of this encounter
== END 2025-03-23 10:26 | disposition home or self-care (01) ==
LOC: HO.HMGAL 10:25
PROVIDERS: Visit Provider Registered Nurse Emergency
DX: J30.89 Other allergic rhinitis (principal)
CPT/HCPCS: 95117; 95165

== ENCOUNTER 2025-04-06 10:18 | Outpatient (AMB) | payer OTHER, SELFPAY ==
--- OUTSIDE RECORDS SUMMARY | 2025-04-06 12:08 | XMS_ITS | Encounter Summary ---
Author Organization [facility] Address [address] [place] [address] Phone Care Team Providers Care Singer And Unloader Name Role Phone Chon Rodgers MD Primary Care Provider [phone] Pcp, Unknown Primary Care Provider Unavailabl e Encounter Details Date Type Department Care Team (Latest Contact Info) Description 03/09/2017 Transcribe Orders [facility] Main [address] [place] [address] Rodolfo Cerna MD 193 [facility] 2 [place] [address] [email or web address] Dysuria (Primary Dx) Social History Tobacco Use [...] EDT) Specimen Source/ Description URINE URINE [facility] Special Requests None [facility] GRAM STAIN Few GRAM NEGATIVE RODS [facility] Culture/Test 10,000 to 100,000 colony forming units per ml ESCHERICHIA COLI(A) [facility] Report Status 03/11/2017 FINAL [facility] ORGANISM ESCHERICHIA COLI [facility] Urine (Urine) 03/08/2017 3:3 4 PM [...] CULTURE ORDERA MARCELL Edited Result - Final [facility] [address] [place] [address] documented in this encounter Visit Diagnoses Diagnosis Dysuria- Primary documented in this encounter Additional Health Concerns Infection Onset Date Last Indicated Resolved Time CoV-Risk 07/18/2022 07/18/2022 07/29/2022 1:23 AM EDT CoV-Risk 08/01/2023 08/01/2023 08/12/2023 1:22 AM EDT documented as of this encounter Care Teams Singer And Unloader Relationship Specialty Start Date End Date Chon Rodgers MD 193 [facility], [address] [place] [address] [email or web address] PCP - General Pediatrics 08/21/17 01/04/21 Pcp, Unknown PCP - General 01/05/21 documented as of this encounter Additional Source Comments The information contained in this document represents components of the legal health record. It is not the complete legal health record.[facility]
--- OUTSIDE RECORDS SUMMARY | 2025-04-06 12:08 | XMS_ITS | Encounter Summary ---
Author Organization [facility] Address [address] [place] [address] Phone Care Team Providers Care Rotary Driller Name Role Phone Smiley Baeza MD Primary Care Provider [phone] Encounter Details Date Type Department Care Team (Late st Contact Info) Description 12/18/2016 Conversion Encounter [facility] Pediatrics - [address], [address] [place] [address] Smiley Baeza MD [address] [place] [address] Social History Tobacco Use Types Packs/Day Years [...] on filedocumented in this encounter Care Teams Rotary Driller Relationship Specialty Start Date End Date Smiley Baeza MD [address] [place] [address] PCP - General Pediatrics 03/19/17 12/27/22 documented as of this encounter
--- OUTSIDE RECORDS SUMMARY | 2025-04-06 12:08 | XMS_ITS | Encounter Summary ---
Author Organization [facility] Address [address] [place] [address] Phone Care Team Providers Care Emergency Room Rn Name Role Phone Smiley Baeza MD Primary Care Provider [phone] Reason for Visit * Reason Comments Med Refill Encounter Details Date Type Department Care Team (Late st Contact Info) Description 07/22/2021 Refill [facility] Pediatrics - [place] [address] [place] [address] Chon Rodgers MD [address] [place] [address] Dysmenorrhea Social History Tobacco Use Types Packs/Day [...] Dysmenorrhea documented in this encounter Care Teams Emergency Room Rn Relationship Specialty Start Date End Date Smiley Baeza MD [address] [place] [address] PCP - General Pediatrics 03/19/17 12/27/22 documented as of this encounter
--- OUTSIDE RECORDS SUMMARY | 2025-04-06 12:08 | XMS_ITS | Encounter Summary ---
Author Organization [facility] Address [address] [place] [address] Phone Care Team Providers Care Associate Professor Of Economics Name Role Phone Smiley Baeza MD Primary Care Provider [phone] Reason for Visit * Reason Comments Med Refill Encounter Details Date Type Department Care Team (Late st Contact Info) Description 01/11/2022 Refill [facility] [place] [address] [place] [address] Smiley Baeza MD [address] [place] [address] Dysmenorrhea Social History Tobacco Use Types Packs/Day [...] Dysmenorrhea documented in this encounter Care Teams Associate Professor Of Economics Relationship Specialty Start Date End Date Smiley Baeza MD [address] [place] [id number] PCP - General Pediatrics 03/19/17 12/27/22 documented as of this encounter
--- OUTSIDE RECORDS SUMMARY | 2025-04-06 12:08 | XMS_ITS | Clinical Summary ---
Author Organization [facility] Address [address] [place] [phone] Phone Care Team Providers Care Linotype Machinist Name Role Phone Pcp, Unknown Primary Care [...] topic Medical Devices Not on file Insurance [facility] OUT [facility] PPO BLUE [place]OSS OUT OF STATE PPO BLUE [place]OSS OUT OF BLUE [facility] PPO BLUE [place] OUT OF STATE PPO [place] OUT OF STATE PPO [facility] OUT OF STATE PPO [facility] PPO [facility] OUT [facility] PPO [facility] PPO Care Teams Linotype Machinist Relationship Specialty Start Date End Date Pcp, Unknown PCP - General 01/05/21 Additional Source Comments The information contained in this document represents components of the legal health record. It is not the complete legal health record.[facility]
--- OUTSIDE RECORDS SUMMARY | 2025-04-06 12:08 | XMS_ITS | Clinical Summary ---
Author Organization [facility] Address [address] [place] [phone] Phone Care Team Providers Care Prior Authorization Nurse Name Role Phone Unavailable Primary Care Provider [...] complete this topic Procedures * Due to [place] [employer] law, this organization might not be sharing sensitive test results. Procedure Name Priority Date/Time Associated Diagnosis Comments CHLAMYDIA AND GONORRHEA, AMPLIFIED Routine 07/09/2018 6:49 PM EST Well adult exam from Last 3 Months or Most Recently Relevant to Health Maintenance Results * Due to [place] [employer] law, this organization might not be sharing sensitive test results. * Chlamydia and Gonorrhoea, Amplified (07/09/2018 6:49 PM EST) Chlamydia trachomatis RNA, TMA Not Detected Not Detected 07/10/2018 1:20 PM EST [facility] Neisseria gonorrhoeae, YVON Not Detected Not Detected 07/10/2018 1:20 PM EST [facility] Specimen Type URINE 07/10/2018 1:20 PM EST [facility] 07/09/2018 6:49 PM EST 07/09/2018 6:58 PM EST us Smiley Baeza MD LAB MICROBIOLOGY - GENERAL ORD ERABLES Final Result [facility] from Last 3 Months or Most Recently Relevant to Health Maintenance
== END 2025-04-06 10:18 | disposition home or self-care (01) ==
LOC: HO.HMGAL 10:18
PROVIDERS: Visit Provider Registered Nurse Emergency
DX: J30.89 Other allergic rhinitis (principal)
CPT/HCPCS: 95117; 95165